=== PATIENT | male | born 1960 | race Caucasian/White ===

== ENCOUNTER 2021-09-12 15:31 | Emergency (ER) | payer SELFPAY ==
[~2021-09-12] VITALS: Ht 177.8 cm; Wt 106.6 kg
[2021-09-12 15:31] VITALS: BP 149/91
--- NOTE | 2021-09-12 15:43 | NUR ---
DANIEL CONNER FROM HOME TAKEN TO ER BED 11.
[2021-09-12] MEDS ORDERED: NACL 0.9% 1,000 ML IV SCH (16:20)
[2021-09-12] MEDS ORDERED: KETOROLAC 30 MG/ML VIAL IVP ONE (16:20)
--- NOTE | 2021-09-12 16:22 | NUR ---
RN PERINATAL AT PT BEDSIDE.
--- NOTE | 2021-09-12 16:23 | NUR ---
PT TAKEN TO CT VIA [facility].
--- NOTE | 2021-09-12 16:32 | NUR ---
PT TAKEN TO ER BED 11 VIA [facility].
[2021-09-12 17:04] LABS: BASOPHILS # (AUTO) 0.1 K/uL (0.00-0.22); EOSINOPHILS # (AUTO) 0.1 K/uL (0-0.4); EOSINOPHILS % (AUTO) 0.4 % (0.0-4.0); HEMATOCRIT 46.7 % (36-52); HEMOGLOBIN 15.9 g/dL (12.0-18.0); LYMPHOCYTES # (AUTO) 0.7 K/uL (2.0-11.5); LYMPHOCYTES % (AUTO) 4.6 % (20.5-51.1); MEAN CORPUSCULAR HEMOGLOBIN 31 pg (27-31); MEAN CORPUSCULAR HGB CONC 34 g/dL (33-37); MONOCYTES # (AUTO) 0.9 K/uL (0.8-1.0); MONOCYTES % (AUTO) 6.1 % (1.7-9.3); NEUTROPHILS # (AUTO) 12.8 K/uL (1.8-7.7); NEUTROPHILS % (AUTO) 87.9 % (42.2-75.2); PLATELET COUNT (AUTO) 172 K/uL (140-450); RED BLOOD CELL COUNT(AUTO) 5.08 MIL/uL (4.20-6.10); RED CELL DISTRIBUTION WIDTH 13.4 % (11.6-13.7); WHITE BLOOD COUNT (AUTO) 14.6 K/uL (4.8-10.8)
[2021-09-12 17:11] LABS: BILIRUBIN,URINE 1+ (NEGATIVE); BLOOD, URINE 3+ (NEGATIVE); LEUKOCYTE ESTERASE ,URINE TRACE (NEGATIVE); NITRITE, URINE NEGATIVE (NEGATIVE); PH,URINE 5.5 (5.0-9.0); UGLUCOSE NEGATIVE (NEGATIVE)
--- NOTE | 2021-09-12 17:22 | NUR ---
PT IN BED, VISIBLE EQUAL RISE AND FALL OF CHEST, VSS, WILL CONTINUE TO MONITOR.
[2021-09-12 17:23] LABS: ALBUMIN 3.8 g/dL (3.4-5.0); CARBON DIOXIDE 28.5 mmol/L (21-32); CREATININE 1.1 mg/dL (0.6-1.3); POTASSIUM 3.5 mmol/L (3.5-5.1); TOTAL BILIRUBIN 0.7 mg/dL (0.0-1.0)
[2021-09-12 17:25] LABS: APPEARANCE,URINE HAZY (CLEAR); COLOR,URINE AMBER (YELLOW)
[2021-09-12 17:28] LABS: RBC,URINE TOO NUMEROUS TO COUN /HPF (0-5)
[2021-09-12] MEDS ORDERED: TAMS0.4C96 PO ×2 (18:02→18:14)
[2021-09-12] MEDS ORDERED: ACET-8386 PO ×2 (18:02→18:14)
[2021-09-12] MEDS ORDERED: CIPR500T4 PO ×2 (18:02→18:14)
[2021-09-12] MEDS ORDERED: IBUP-2213 PO ×2 (18:02→18:14)
[2021-09-12 18:14] VITALS: BP 134/85
--- NOTE | 2021-09-12 18:14 | NUR ---
Patient discharged with v/s stable. Written and verbal after care instructions given FOR KIDNEY STONES, URINARY TRACT INFECTION and explained. Patient alert, oriented and verbalized understanding of instructions. Ambulatory with steady gait. All questions addressed prior to discharge. ID band removed. Patient advised to follow up with PMD. Rx of FLOMAX, NORCO, CIPRO, AND IBUPROFEN given. Patient educated on indication of medication including possible reaction and side effects. Opportunity to ask questions provided and answered.
== END 2021-09-12 18:14 | disposition home or self-care (01) ==
LOC: MED 15:31
DX: N20.0 Calculus of kidney (principal); N39.0 Urinary tract infection, site not specified; F17.200 Nicotine dependence, unspecified, uncomplicated; Z98.890 Other specified postprocedural states
CPT/HCPCS: 36415; 74176; 80053; 81001; 83690; 85025; 87086; 96360; 99284; J1885